=== PATIENT | male | born 1965 | race Caucasian/White ===

== ENCOUNTER 2018-04-09 16:31 | Emergency (ER) | payer OTHER ==
[~2018-04-09] VITALS: Ht 185.4 cm; Wt 93.0 kg
[2018-04-09 16:31] VITALS: BP 135/85
[2018-04-09] MEDS ORDERED: TDAP [DIPH/PERTUSSIS/TET] 0.5 ML VIAL IM ONE ×2 (17:00→17:13)
== END 2018-04-09 17:32 | disposition home or self-care (01) ==
LOC: ER 16:35
DX: S81.811A Laceration without foreign body, right lower leg, initial encounter (principal); W51.XXXA Accidental striking against or bumped into by another person, initial encounter; Y93.89 Activity, other specified; Y92.89 Other specified places as the place of occurrence of the external cause; Y99.8 Other external cause status
CPT/HCPCS: 12001; 90471; 90715; 99283; A4606; A6403

== ENCOUNTER 2021-11-11 11:21 | Emergency (ER) | payer BC, OTHER ==
[~2021-11-11] VITALS: Ht 188 cm; Wt 97.5 kg
--- NOTE | 2021-11-11 11:35 | NUR ---
BIBRA 37 W/ C/O LIGHTHEADEDNESS, RIGHT "PERIPHERAL VISION LOSS", ONSET 10AM. DIFFICULTY COMPREHENDING WHAT HE'S READING. RESOLVED [employer]AM [employer] TO ER BED 11.
--- NOTE | 2021-11-11 11:46 | NUR ---
dr ramey at bedside for eval.
--- NOTE | 2021-11-11 11:57 | NUR ---
iv line started blood drawn and sent to lab.
[2021-11-11] MEDS ORDERED: IV NS 0.9% 1,000 ML BAG IV ONE (12:00)
[2021-11-11 12:15] LABS: BASOPHILS % (AUTO) 0.3 % (0.0-2.0); HEMATOCRIT 45 % (39-51); HEMOGLOBIN 15.1 g/dL (13.5-17.5); MEAN CORPUSCULAR HGB CONC 34 g/dl (31.0-36.0); MEAN CORPUSCULAR VOLUME 95 fL (80-96); MONOCYTES # (AUTO) 0.3 K/uL (0.1-1.30); MONOCYTES % (AUTO) 8.5 % (2.0-12.0); NEUTROPHILS # (AUTO) 1.8 K/uL (1.8-8.9); NEUTROPHILS % (AUTO) 55.2 % (43.0-81.0); PLATELET COUNT (AUTO) 135 K/uL (150-450); RED BLOOD CELL COUNT(AUTO) 4.73 MIL/uL (4.5-6.0); WHITE BLOOD COUNT (AUTO) 3.3 K/uL (4.3-11.0)
[2021-11-11 12:36] LABS: BILIRUBIN,DIRECT 0.2 mg/dL (0.0-0.2); BILIRUBIN,TOTAL 0.7 mg/dL (0.2-1.0); CALCIUM, SERUM 8.8 mg/dL (8.5-10.1); POTASSIUM 4.2 mmol/L (3.5-5.1); TOTAL PROTEIN, SERUM 7.2 g/dL (6.4-8.2)
--- NOTE | 2021-11-11 13:20 | NUR ---
IV removed. Catheter intact and site benign. Pressure and 4x4 applied to site. No bleeding noted.
--- NOTE | 2021-11-11 13:25 | NUR ---
Patient discharged to home in stable condition. Written and verbal after care instructions given. Patient verbalizes understanding of instruction.
[2021-11-11 13:27] VITALS: BP 132/85
== END 2021-11-11 13:28 | disposition home or self-care (01) ==
LOC: ER 11:24
DX: R55 Syncope and collapse (principal)
CPT/HCPCS: 99285; 96360; 70450; 71045; 93005; 85025; 80048; 80076; 36415; 85730; 82962; J7030

== ENCOUNTER 2021-11-29 10:22 | Emergency (ER) | payer BC, OTHER ==
[~2021-11-29] VITALS: Ht 185.4 cm; Wt 93.0 kg
[2021-11-29 10:48] VITALS: BP 128/76
--- NOTE | 2021-11-29 10:48 | NUR ---
BIBS C/O RIGHT FOOT PAIN P/S 06/01, "I GOT UP FROM SITTING, MUST HAVE LANDED WRONG"
[2021-11-29] MEDS ORDERED: NAPR-1164 PO (12:01)
--- NOTE | 2021-11-29 12:09 | NUR ---
Patient discharged to home in stable condition. Written and verbal after care instructions given. Patient verbalizes understanding of instruction.
== END 2021-11-29 12:10 | disposition home or self-care (01) ==
LOC: ER 10:24
DX: S93.491A Sprain of other ligament of right ankle, initial encounter (principal); X50.1XXA Overexertion from prolonged static or awkward postures, initial encounter; Y93.89 Activity, other specified; Y92.89 Other specified places as the place of occurrence of the external cause; Y99.8 Other external cause status
CPT/HCPCS: 73610-TC